=== PATIENT | male | born 2000 | race American Indian/Alaskan Native ===

== ENCOUNTER 2025-04-17 02:57 | Emergency (ER) | payer SELFPAY ==
[2025-04-17] MEDS: Lidocaine 1% PF 2 ML SDV INJECT ONE (03:59)
== END 2025-04-17 04:24 | disposition home or self-care (01) ==
LOC: JD.ED 02:57
DX: S91.211A Laceration without foreign body of right great toe with damage to nail, initial encounter (principal); X50.9XXA Other and unspecified overexertion or strenuous movements or postures, initial encounter
CPT/HCPCS: 11730; 73660; 99283; J2003